=== PATIENT | female | born 1935 | race Hispanic/Latino ===

== ENCOUNTER 2017-09-01 12:42 | Outpatient (CLI) | payer MEDICARE, OTHER | END 2017-09-01 12:43 | disposition home or self-care (01) | LOC: BICCT 12:42 | PROVIDERS: ATTEND Thoracic Surgery (Cardiothoracic Vascular Surgery) | DX: I70.90 Unspecified atherosclerosis; I71.2 Thoracic aortic aneurysm, without rupture | CPT/HCPCS: 71250 ==

== ENCOUNTER 2018-01-24 10:51 | Outpatient (CLI) | payer MEDICARE, OTHER | END 2018-01-24 10:52 | disposition home or self-care (01) | LOC: BICMAMMO 10:51 | PROVIDERS: ATTEND Internal Medicine | DX: Z12.31 Encounter for screening mammogram for malignant neoplasm of breast (principal) | CPT/HCPCS: 77063; 77067 ==

== ENCOUNTER 2018-03-12 16:40 | Inpatient (IN) | payer MEDICARE, OTHER ==
[~2018-03-12 16:40] MED LIST: Lidocaine 1% PF 5 ML VIAL ONE; PHENYLEPHRINE-NS 100 MCG/ML 10 ML SYRINGE ONE; PROPOFOL 200 MG/20 ML VIAL ONE; ePHEDrine/0.9% NaCl/PF SYRINGE 50 mg/10 ml ONE
[2018-03-12] MEDS ORDERED: Acetaminophen 500 MG TAB ONE (17:44)
[2018-03-12 18:14] LABS: #Lymphocytes 0.9 thou/uL (1.20-3.40); #Monocytes 1.3 thou/uL (0.11-0.59); #Neutrophils 13.1 thou/uL (1.40-6.50); %Basophils 0.1 % (0.0-1.0); %Eosinophils 0.2 % (0.0-10.0); %Lymphocytes 5.9 % (21.0-51.0); %Monocytes 8.2 % (0.0-10.0); %Neutrophils 85.6 % (42.0-75.0); Hemoglobin 15.2 g/dL (12.0-16.0); Mean Corpuscular Hemoglobin 30.6 pg (27.0-31.0); Mean Corpuscular Volume 92.6 fL (78.0-98.0); Mean Platelet Volume 8.9 fL (7.4-10.4); Platelet Count 182 thou/uL (130-400); RBC Distribution Width 12.2 % (11.5-14.5); Red Blood Cell (RBC) Count 4.97 mill/uL (4.20-5.40); White Blood Cell (WBC) Count 15.3 thou/uL (4.8-10.8)
[2018-03-12 19:16] LABS: ALT (SGPT) 9 U/L (8-55); AST (SGOT) 20 U/L (5-34); Albumin 3.5 g/dL (3.4-4.8); Alkaline Phosphatase 51 U/L (40-150); Anion Gap 12 mmol/L (10-20); BUN (Urea Nitrogen) 17 mg/dL (9.8-20.1); Bilirubin, Total 1.5 mg/dL (0.2-1.2); Calc. Creatinine Clearance 0 mL/min (70-130); Calcium 8.8 mg/dL (7.8-10.44); Carbon Dioxide 22 mmol/L (23-31); Chloride 107 mmol/L (98-107); Estimated GFR-MDRD 68; Globulin 3.2 g/dL (2.4-3.5); Glucose 144 mg/dL (83-110); Lipase 13 U/L (8-78); Potassium 3.4 mmol/L (3.5-5.1); Protein, Total 6.7 g/dL (6.0-8.3); Sodium 138 mmol/L (136-145)
[2018-03-12 19:31] LABS: Bilirubin Negative (Negative); Blood, Urine Moderate (Negative); Clarity TURBID (Clear); Glucose, Urine (Dipstick) Negative (Negative); Leukocyte Large (Negative); Nitrite Positive (Negative); Protein, Urine (Dipstick) 30 mg/dL (Neg-Trace); Specific Gravity, Urine 1.016 (1.002-1.036); pH, Urine 6.5 (5.0-9.0)
[2018-03-12 19:34] LABS: Bacteria/HPF 4+ HPF (None Seen); Hyaline Casts/LPF 4-6 HYALINE CAST LPF (0-3 Hyaline); RBC/HPF 21-50 HPF (0-3); Squamous Epithelial 0-3 HPF (0-3)
--- NOTE | 2018-03-12 19:44 | CT ---
CT OF ABDOMEN AND PELVIS PERFORMED WITHOUT CONTRAST ENHANCEMENT: History: Abdominal pain, fever. FINDINGS: The lung bases show some linear scar. Coronary artery calcifications are present. There is a small hi atal hernia present. The liver, spleen, and pancreas regions appear unremarkable. The gallbladder is not distended. Right and left adrenal glands are normal. There are bilateral renal cysts, large bi-lobed cyst in the right kidney measures 7.1 cm. There is some calcification associated with septations. In reviewing a previous CT angiogram, I do not see that there is any obvious interval change. There is no significa nt periaortic or mesenteric adenopathy. Atherosclerotic change of the aorta is noted. There is some m ild right sided hydronephrosis and hydroureter. This is related to a proximal ureteral calculus which measures 6-7 mm. There is perinephric fat stranding seen associated with this. The ureter distal to this level is nondilated. CT OF PELVIS PERFORMED WITHOUT CONTRAST ENHANCEMENT: There is no evidence of any adenopathy, mass, or free fluid. Arthritic changes of the spine are noted. IMPRESSION: 1. Mild right sided hydronephrosis and hydroureter related to a 6 mm proximal right ureteral calculus located at the L4 level. 2. Bilateral renal cysts which appear stable as compared to a 2017 study. 3. Coronary calcifications. 4. Small hiatal hernia. POS: BIRGIT
[2018-03-12] MEDS ORDERED: cefTRIAXone\\ROCEPHIN 1 GM VIAL ONE (19:55)
[2018-03-12] MEDS ORDERED: Iothalamate Meglumine 60% 50 ML VIAL FS ONE (20:57)
--- NOTE | 2018-03-12 22:29 | RAD ---
RETROGRADE PYELOGRAM THREE VIEWS: History: Stent placement. FINDINGS: These C-arm images show a filling defect in the midureter. The final film shows placement of a ureter al stent. IMPRESSION: Right ureteral stent placement. Small calcification is noted at approximately the L3-4 level. POS: BIRGIT
[2018-03-12] MEDS ORDERED: Sodium Chloride 0.9% 1,000 ML IV SCH (22:45)
[2018-03-12] MEDS ORDERED: Vancomycin HCl 1.5 GM in Sodium Chloride 0.9% 250 ML 300 ML IVPB SCH (23:00)
--- NOTE | 2018-03-12 23:12 | CON ---
DATE OF CONSULTATION: 03/12/2018 CONSULTING PHYSICIAN: Sandro Morales MD CONSULTED PHYSICIAN: Abdulaziz Downs MD REASON FOR CONSULTATION: Ureteral stone with fevers. HISTORY OF PRESENT ILLNESS: Ms. Velez is an 83-year-old female who presented to the emerge ncy room with a fever of 101 and right-sided flank and abdominal pain. She states that she has been constipated for several days and has not had a bowel movement. She was having worsening abdominal pa in and attributed this to the constipation. She actually decided to come into the emergency room due to the constipation and the fact that she had not had a bowel movement, but was noted to be febrile on the way in and upon arrival to the ER. She underwent a CT scan, which demonstrated an approximate ly 6 to 7 mm right proximal ureteral stone with hydronephrosis and perinephric stranding, and concern ing findings on urinalysis consistent with a urinary tract infection. Given the fever and the stone, I was consulted for further assistance. On my discussion with the patient, she states she has never had kidney stones previously. She denies any previous history of urologic surgeries. She rarely ge ts UTIs and states that she does not have any significant voiding difficulties. She denies any hemat uria. ALLERGIES: SULFA. HOME MEDICATIONS: The patient does not remember her home medications. She states that she takes cam ething for blood pressure and cholesterol, but cannot remember and does not have her list with her. PAST MEDICAL HISTORY: 1. Aortic dissection. 2. Hypertension. 3. Hyperlipidemia. 4. Vaginal prolapse. PAST SURGICAL HISTORY: Hysterectomy and anterior repair. FAMILY HISTORY: Noncontributory. SOCIAL HISTORY: The patient denies alcohol abuse, illicit drug use, and denies smoking. REVIEW OF SYSTEMS: A 12-point review of systems is unremarkable other than what was commented on the HPI. Specifically, she denies vomiting, but has had some nausea. Reports fevers, back pain, and fl ank pain. 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 She denies any chest pain or shortness of breath. Remainder of 12-point review of systems was reviewed and oth erwise negative. PHYSICAL EXAMINATION: VITAL SIGNS: Temperature 101.3, pulse 87, respirations 20, blood pressure 126/76, saturations 97% on room air. GENERAL: No apparent distress, communicative, and alert. Appears younger than stated age, well nour ished, well developed. HEENT: Normocephalic, atraumatic. Sclerae are nonicteric. Pupils are symmetric and round. Trachea midline. Moist mucous membranes. Adequate dentition. CARDIOVASCULAR: Regular rate and rhythm. Normal S1 and S2. Symmetric pulses. CHEST: No increased work of breathing. Clear anteriorly. Nonlabored breathing. ABDOMEN: Soft, nondistended. Mild tenderness to palpation diffusely, but primarily in the hypogastr ic and right-sided abdomen. There is mild right CVA tenderness. GENITOURINARY: Deferred at this time. EXTREMITIES: No clubbing or cyanosis. 2+ lower extremity edema. SKIN: Warm, dry, poor turgor. No rashes or lesions. MUSCULOSKELETAL: No joint deformities or joint erythema noted. Adequate range of motion. NEUROLOGIC: Cranial nerves II-XII appear grossly intact. No obvious focal or sensory motor deficits identified. PSYCHIATRIC: Alert and oriented x3. Appropriate mood and affect. LABORATORY AND X-RAY FINDINGS: On laboratory evaluation, full set of labs is in the [employer] system, which I have reviewed. Of note, the patient's white count is currently 15.3 with 85.6% neutrophils. Creatinine is 0.81. Lactic acid is 2. Urinalysis demonstrates nitrite positive, large leukocyte e sterase, 21-50 red cells, too numerous to count white cells, 4+ bacteria with 0-[address] stone protocol from the ER today demonstrates hydronephrosis and perinephric stranding on the right kidney with an approximately 6 to 7 mm spherical proximal ureteral stone. No other additional stones were noted. ASSESSMENT AND PLAN: An 83-year-old female with likely pyelonephritis and fever with impact ed ureteral stone. Given the fevers and the ureteral stone, I would not recommend conservative manag ement. I have stressed to the patient that the best course of action would be cystoscopy with ureter al stenting. We discussed the procedure as well as the risks, which include but are not limited to b leeding, worsening infection, inability to pass a stent, damage to the ureter, ureteral perforation, damage to the kidney or bladder, need for further procedure such as a nephrostomy tube. She understa nds these risks and wishes to proceed forward. I would recommend that she be admitted to the [facility] for medical management of possible urosepsis. Blood cultures have already been taken as well as urine culture, which we will await to speciate and once we have finalization of the cultures and she is stable, she can probably be discharged on oral antibiotic therapy. I will continue to fo love and make recommendations.
[2018-03-12] MEDS ORDERED: Ondansetron HCl/PF 4 MG/2 ML Vial IVP PRN (23:22)
[2018-03-12] MEDS ORDERED: Acetaminophen 325 MG TAB PO PRN (23:22)
--- NOTE | 2018-03-13 00:59 | OP ---
DATE OF PROCEDURE: 03/12/2018 SERVICE: Urology. SURGEON: Abdulaziz Downs M.D. PREOPERATIVE DIAGNOSES: Right ureteral stone with pyelonephritis. POSTOPERATIVE DIAGNOSES: Right ureteral stone, pyelonephritis. PROCEDURE PERFORMED: Cystoscopy with right retrograde pyelogram, right ureteral stent placement. INDICATIONS FOR PROCEDURE: Ms. Velez is an 83-year-old female who presented with a fever o f 101.3 and a right ureteral stone with UA findings consistent with a urinary tract infection due to the fever and UTI, we elected to go for urgent ureteral stent placement. Risks and benefits have bee n discussed and she has agreed to proceed forward. DESCRIPTION OF PROCEDURE: After identification of verification of consent, patient was brought back to the operating room where she underwent general anesthesia with endotracheal intubation. She was t hen placed in dorsal lithotomy position and prepped and draped in usual sterile fashion. After appro priate timeout, a lubricated 22 Cypriot rigid cystoscope was introduced per urethra into the bladder. A limited cystoscopy did not demonstrate any significant findings other than very foul-smelling urin e and some hyperemic findings within the bladder. Attention was turned to the right ureteral orifice after the bladder was flushed out adequately and this was cannulated with a 5 Cypriot Pollack cathete r. A gentle retrograde pyelogram was performed, which demonstrated a filling defect at the location of the previously noted radiopaque stone. The Pollack catheter was then removed and a 0.035-sensor w armando was brought in through the ureteral orifice up to the level of the renal pelvis. A 6 x 26 double -J stent was advanced over the sensor wire up to the level of the renal pelvis. The wire removed in a good curl in the renal pelvis and good curl in the bladder. The bladder was then emptied, the cyst oscope removed. The patient was then awakened and taken to PACU for recovery in stable condition. COMPLICATIONS: None. ESTIMATED BLOOD LOSS: Minimal. RETAINED TUBES AND DRAINS: A 6 x 26 double-J stent on the right. SPECIMENS: None. DISPOSITION: Patient will be admitted to the medicine service for antibiotics. I will continue to gilda stein and make recommendations and her definitive stone management will be addressed after she has completed all of her antibiotic therapy.
[2018-03-13 05:56] LABS: #Monocytes 1.1 thou/uL (0.11-0.59); #Neutrophils 12.1 thou/uL (1.40-6.50); %Basophils 0.1 % (0.0-1.0); %Eosinophils 0.1 % (0.0-10.0); %Lymphocytes 6.8 % (21.0-51.0); %Monocytes 7.6 % (0.0-10.0); %Neutrophils 85.4 % (42.0-75.0); Hemoglobin 13.2 g/dL (12.0-16.0); Mean Corpuscular HGB CONC 32.4 g/dL (32.0-36.0); Mean Corpuscular Hemoglobin 30.5 pg (27.0-31.0); Mean Corpuscular Volume 94.1 fL (78.0-98.0); Mean Platelet Volume 7.4 fL (7.4-10.4); Platelet Count 159 thou/uL (130-400); RBC Distribution Width 11.9 % (11.5-14.5); Red Blood Cell (RBC) Count 4.35 mill/uL (4.20-5.40); White Blood Cell (WBC) Count 14.2 thou/uL (4.8-10.8)
[2018-03-13 06:14] LABS: Anion Gap 10 mmol/L (10-20); BUN (Urea Nitrogen) 14 mg/dL (9.8-20.1); Calc. Creatinine Clearance 57 mL/min (70-130); Calcium 8.8 mg/dL (7.8-10.44); Carbon Dioxide 24 mmol/L (23-31); Chloride 109 mmol/L (98-107); Estimated GFR-MDRD 69; Glucose 169 mg/dL (83-110); Sodium 140 mmol/L (136-145)
[2018-03-13] MEDS ORDERED: Mag-Al 1200 mg/1200 mg/30 ML UDCUP PO PRN (08:41)
[2018-03-13] MEDS ORDERED: Sodium Chloride 0.65% Nasal 44 ML BOT EA NARE PRN (08:41)
[2018-03-13] MEDS ORDERED: Eucerin (Mineral Oil/Petrolatum,White) 30 gm Jar TOP PRN (08:41)
[2018-03-13] MEDS ORDERED: Ondansetron ODT 4 MG TAB PO PRN (08:41)
[2018-03-13] MEDS ORDERED: Famotidine 20 MG TAB PO PRN (08:41)
[2018-03-13] MEDS ORDERED: Temazepam 15 MG CAP PO PRN (08:41)
[2018-03-13] MEDS ORDERED: Loratadine 10 MG TAB PO PRN (08:41)
[2018-03-13] MEDS ORDERED: Chloraseptic Spray 180 ml Bottle PO PRN (08:41)
[2018-03-13] MEDS ORDERED: Diabetic Tussin 200 MG/10 ML UDCUP PO PRN (08:41)
[2018-03-13] MEDS ORDERED: Senokot 8.6 MG TAB PO PRN (08:41)
[2018-03-13] MEDS ORDERED: Loperamide HCl 2 MG CAP PO PRN (08:41)
[2018-03-13] MEDS ORDERED: hydrALAZINE 20 MG/ML VIAL SLOW IVP PRN (08:41)
[2018-03-13] MEDS ORDERED: Milk Of Magnesia 30 ML UDCUP PO PRN (08:41)
[2018-03-13] MEDS ORDERED: HYDROcodone/Acetaminophen 5/325 mg Tablet PO PRN (08:41)
[2018-03-13] MEDS ORDERED: Artificial Tears 18 DROP/0.9 ML EA EYE PRN (08:41)
[2018-03-13] MEDS ORDERED: Oxybutynin 5 MG TAB PO PRN (08:58)
[2018-03-13] MEDS: Enoxaparin Sodium 40 MG/0.4 ML SYRINGE SC SCH (09:06)
--- NOTE | 2018-03-13 10:35 | PRG ---
DATE OF SERVICE: 03/13/2018 SUBJECTIVE: The patient states she is feeling fine. She has no pain today. She has had some urgenc y and frequency symptoms. She denies any fevers. OBJECTIVE: VITAL SIGNS: Temperature 98.6, pulse 81, respirations 18, blood pressure 135/79, saturation 96% on r oom air. GENERAL: No apparent distress, communicative, alert. CARDIOVASCULAR: Regular rate and rhythm. CHEST: No increased work of breathing. LUNGS: Clear to auscultation. ABDOMEN: Soft, nontender, nondistended, positive bowel sounds. EXTREMITIES: No clubbing, cyanosis, continued 2+ edema. LABORATORY DATA: A full set of labs are in the [facility] system which I have reviewed. Of note, the patient's white count has decreased to 14.2, hemoglobin is 13.2, creatinine 0.8. ASSESSMENT AND PLAN: An 83-year-old female with a right ureteral stone with pyelonephritis and possible early sepsis status post right ureteral stent placement, recovering well. I will give h er some oxybutynin to help with the bladder spasms that she is having. She still has not had a bowel movement, is complaining about her constipation, so I will start lactulose for 2 doses in addition t o the Milk of Magnesia which she already has to help facilitate emptying of her bowels. I would cont inue the IV antibiotics until she has cultures finalized at which point she can be transitioned to p. o. antibiotics and discharged on oral antibiotics for probably about 2 weeks before we would plan for any definitive intervention for removal of the stone. I will continue to follow along and make sara mmendations.
[2018-03-13] MEDS ORDERED: Acetaminophen 500 MG TAB PO PRN (13:51)
[2018-03-13] MEDS ORDERED: Bisacodyl 5 MG TAB PO PRN (13:51)
[2018-03-13] MEDS ORDERED: Bisacodyl 10 MG SUPP PR PRN (13:51)
--- NOTE | 2018-03-13 13:52 | PDOC.PN ---
- Subjective Encounter Start Date: 03/13/18 Encounter Start Time: 09:00 -: old records requested/rev Patient seen and examined. No overnight events pt feels better, she has constipation - Objective Resuscitation Status: Resuscitation Status FULL:Full Resuscitation MAR Reviewed: Yes Vital Signs & Weight: Vital Signs (12 hours) Temp Pulse Resp BP Pulse Ox 03/13/18 10:49 98.4 F 76 16 143/87 H 95 03/13/18 08:00 96 03/13/18 07:13 98.6 F 81 18 135/79 96 03/13/18 03:50 98.0 F 83 20 138/77 99 Weight Weight 148 lb 1 oz I&O: 03/12/18 03/13/18 03/14/18 06:59 06:59 06:59 Intake Total 1200 Output Total 600 Balance 600 Result Diagrams: 03/13/18 05:23 03/13/18 05:23 Phys Exam - Physical Examination Constitutional: NAD HEENT: PERRLA, moist MMs, sclera anicteric Neck: no JVD, supple Respiratory: no wheezing, no rales, no rhonchi Cardiovascular: RRR, no significant murmur, no rub Gastrointestinal: soft, non-tender, no distention, positive bowel sounds Musculoskeletal: no edema, pulses present Neurological: non-focal, normal sensation, moves all 4 limbs Psychiatric: normal affect, A&O x 3 Skin: no rash, normal turgor Dx/Plan (1) Acute pyelonephritis Code(s): N10 - ACUTE PYELONEPHRITIS Status: Acute (2) Hydronephrosis, right Code(s): N13.30 - UNSPECIFIED HYDRONEPHROSIS Status: Acute (3) Hypokalemia Code(s): E87.6 - HYPOKALEMIA Status: Acute (4) Right ureteral calculus Code(s): N20.1 - CALCULUS OF URETER Status: Acute (5) Sepsis Code(s): A41.9 - SEPSIS, UNSPECIFIED ORGANISM Status: Acute (6) UTI (urinary tract infection) Status: Acute - Plan cont current plan of care, plan discussed w/ family, continue antibiotics * continue rocephin * treat constipation with lactulose and other stool softener * medication reviewed as below * symptomatic treatment * follow culture * discussed with family. Review of Systems - Review of Systems ENT: negative: Ear Pain, Ear Discharge, Nose Pain, Nose Discharge, Nose Congestion, Mouth Pain, Mouth Swelling, Throat Pain, Throat Swelling, Other Respiratory: negative: Cough, Dry, Shortness of Breath, Hemoptysis, SOB with Excertion, Pleuritic Pain, Sputum, Wheezing Cardiovascular: negative: chest pain, palpitations, orthopnea, paroxysmal nocturnal dyspnea, edema, light headedness, other Gastrointestinal: negative: Nausea, Vomiting, Abdominal Pain, Diarrhea, Constipation, Melena, Hematochezia, Other Genitourinary: negative: Dysuria, Frequency, Incontinence, Hematuria, Retention , Other Musculoskeletal: negative: Neck Pain, Shoulder Pain, Arm Pain, Back Pain, Hand Pain, Leg Pain, Foot Pain, Other Skin: negative: Rash, Lesions, Vikash, Bruising, Other - Medications/Allergies Allergies/Adverse Reactions: Allergies Allergy/AdvReac Type Severity Reaction Status Date / Time sulfamethoxazole Allergy Unverified 03/12/18 22:32 [From Bactrim] trimethoprim [From Bactrim] Allergy Unverified 03/12/18 22:32 Medications: Current Medications Acetaminophen (Tylenol) 650 mg PO Q4H PRN PRN Reason: Headache/Fever/Mild Pain (1-3) Hydrocodone Bitart/Acetaminophen ([place] 5/325) 1 tab PO Q4H PRN PRN Reason: Moderate Pain (4-6) Al Hydroxide/Mg Hydroxide (Maalox) 15 ml PO Q4H PRN PRN Reason: Heartburn or Indigestion Artificial Tears (Tears Naturale) 0 drop EA EYE PRN PRN PRN Reason: Dry Eyes Enoxaparin Sodium (Lovenox) 40 mg SC 0900 [facility] Last Admin: 03/13/18 09:06 Dose: 40 mg Famotidine (Pepcid) 20 mg PO BIDPRN PRN PRN Reason: Heartburn or Indigestion Guaifenesin (Robitussin Sf) 200 mg PO Q4H PRN PRN Reason: Cough Hydralazine HCl (Apresoline) 10 mg SLOW IVP Q4H PRN PRN Reason: Systolic BP > 180 Ceftriaxone Sodium 1 gm/ (Sodium Chloride) 100 mls @ 200 mls/hr IVPB Q24HR [facility] Lactulose (Lactulose) 30 gm PO BID [facility] Stop: 03/13/18 21:01 Last Admin: 03/13/18 09:07 Dose: 30 gm Loperamide HCl (Imodium) 2 mg PO PRN PRN PRN Reason: Diarrhea/Loose Stools Loratadine (Claritin) 10 mg PO DAILYPRN PRN PRN Reason: Sinus Symptoms Magnesium Hydroxide (Milk Of Magnesium) 30 ml PO DAILYPRN PRN PRN Reason: Constipation Mineral Oil/White Petrolatum (Eucerin Cream) 0 gm TOP BIDPRN PRN PRN Reason: Dry Skin Ondansetron HCl (Zofran) 4 mg IVP Q6H PRN PRN Reason: Nausea/Vomiting Ondansetron HCl (Zofran Odt) 4 mg PO Q6H PRN PRN Reason: Nausea/Vomiting Oxybutynin Chloride (Ditropan) 5 mg PO Q8H PRN PRN Reason: bladder spasms/urgency/freq Phenol (Chloraseptic [place] 180 Ml Bot) 0 ml PO PRN PRN PRN Reason: Sore Throat Senna (Senokot) 2 tab PO HSPRN PRN PRN Reason: Constipation Sodium Chloride ([place] Nasal [place] 0.65%) 0 ml EA NARE QIDPRN PRN PRN Reason: Nasal Congestion Temazepam (Restoril) 15 mg PO HSPRN PRN PRN Reason: Insomnia
--- NOTE | 2018-03-13 14:28 | HP ---
DATE OF ADMISSION: 03/12/2018 PRIMARY CARE PHYSICIAN: Dr. Александр Pang. CODE STATUS: Patient is a FULL CODE. TIME OF EVALUATION: 9:00 p.m. CHIEF COMPLAINT: Abdominal pain, right flank. HISTORY OF PRESENT ILLNESS: An 83-year-old female patient with past medical history of hyperlipidemi a, hypertension, hysterectomy, came to the hospital after having abdominal pain that was in the right flank for the past 3 days, with no clear triggers, no alleviating factors. Patient was suspecting t hat this was due to constipation. Since it has been a few days that she did not have a bowel movemen t, patient also has associated fever of 101.9 and nausea. Symptoms were reported as [id number]. REVIEW OF SYSTEMS: Constitutional: Patient has fever, chills, generalized weakness. Respiratory: No cough, sputum production, or shortness of breath. Gastrointestinal: Patient has nausea, vomiting . No diarrhea. Patient has right flank pain. ZANJERO: No dizziness, headache, or feeling lightheaded. Genitourinary: The patient has right flank pain. Extremities: No leg swelling. All other system s were reviewed and are negative except for the findings mentioned above. PAST MEDICAL HISTORY: Positive for aortic dissection treated medically, hyperlipidemia, hypertension . PAST SURGICAL HISTORY: Vaginal prolapse, hysterectomy. PSYCHIATRIC HISTORY: No previous psychiatric history. SOCIAL HISTORY: No alcohol, no drugs. No smoking history. DRUG ALLERGIES: BACTRIM. REPORTED MEDICATIONS: Pravastatin, amlodipine, metoprolol, furosemide, levothyroxine, aspirin, Flexe ril, [place], Cipro. PHYSICAL EXAMINATION: VITAL SIGNS: On presentation, blood pressure 126/76 with heart rate 87, respiratory rate was 20, tem perature of 101.3. Pain was 0/10, oxygen saturation 93 on room air. GENERAL APPEARANCE: The patient is alert, oriented, in mild distress due to right flank pain. HEENT: Normal conjunctivae, moist oral mucosa. Anicteric. NECK: No JVD. RESPIRATORY: Bilateral air entry. No rales, no wheezing. Symmetric expansion. CARDIOVASCULAR: Normal rate, regular rhythm. No murmurs, no gallop, no edema. ABDOMEN: Soft. Normal bowel sounds. MUSCULOSKELETAL: Baseline range of motion and strength. No tenderness. SKIN: Warm and intact. No pallor or rash noted. Peripheral pulses are present. Capillary refill s eems to be intact. NEUROLOGIC: No evidence of any new focal weakness. Baseline speech. Cranial nerves seem to be inta ct. PSYCHIATRIC: Patient is in good mood. No anxiety, oriented, optimal judgment. GENITOURINARY: The patient has right flank pain on palpation. IMAGING: CAT scan was reviewed. The patient has mild right-sided hydronephrosiswith hydroureter rel ated to a 6 mm proximal right ureteral calculus located at L4 level and bilateral renal cysts, which appeared stable as compared to 2017 study, coronary calcifications, and small hiatal hernia. LABORATORY DATA: Reviewed. White count 15.3, hemoglobin 15.2, MCV 92, platelet count 182. Chemistr y: Sodium 138, potassium 3.4, chloride 107, carbon dioxide 22, anion gap 12, BUN 17, creatinine 0.8, GFR of 68, glucose 244. Lactic acid 2.0, calcium 9.8. Total bilirubin 1.5, AST 20, ALT 9, alkaline phosphatase 51, serum total protein 6.7, albumin 3.5, globulin 3.2, albumin globulin ratio is 1.1 an d lipase 13. Urine was done. The patient has a white count greater than 50 too numerous to count wi th rbc 21 to 50, large leukocyte esterase. ASSESSMENT AND PLAN: The patient will be placed in the hospital with following medical problem: 1. Right urinary obstruction with mild hydronephrosis due to kidney stone of 6-7 mm, patient has raheem e through procedure and the stent has been placed. Urology is following this part, we will follow re commendations. 2. Urinary tract infection. Patient has positive UA. Patient has fever, elevated white count. We will place the patient on antibiotics. We will follow cultures, adjust treatment as needed. 3. Sepsis. Patient has leukocytosis with fever, source of urinary tract infection due to obstructio n from kidney stone, we will continue with reconciling medication and antibiotics as per culture and sensitivity, hydration. 4. Hypokalemia with a potassium of 3.4, this is mild, we will replace electrolytes as needed. 5. Hyperlipidemia, reconcile home medications. Low cholesterol diet is advised. 6. Uncontrolled hypertension. Patient has a blood pressure 152 on presentation, we will reconcile h ome medications, we will not treat aggressively since patient has sepsis and risk for septic shock. 7. Deep venous thrombosis prophylaxis.
[2018-03-13] MEDS ORDERED: cefTRIAXone\\ROCEPHIN 1 GM in Sodium Chloride 0.9% 100 ML IVPB SCH (20:00)
[2018-03-14 06:24] LABS: #Lymphocytes 0.9 thou/uL (1.20-3.40); #Monocytes 0.9 thou/uL (0.11-0.59); #Neutrophils 5.8 thou/uL (1.40-6.50); %Basophils 0.2 % (0.0-1.0); %Eosinophils 0.2 % (0.0-10.0); %Lymphocytes 12.1 % (21.0-51.0); %Monocytes 11.2 % (0.0-10.0); %Neutrophils 76.2 % (42.0-75.0); Mean Corpuscular HGB CONC 32.4 g/dL (32.0-36.0); Mean Corpuscular Hemoglobin 30.6 pg (27.0-31.0); Mean Corpuscular Volume 94.3 fL (78.0-98.0); Mean Platelet Volume 8.2 fL (7.4-10.4); Platelet Count 145 thou/uL (130-400); RBC Distribution Width 11.9 % (11.5-14.5); Red Blood Cell (RBC) Count 4.25 mill/uL (4.20-5.40); White Blood Cell (WBC) Count 7.6 thou/uL (4.8-10.8)
[2018-03-14 06:41] LABS: Anion Gap 11 mmol/L (10-20); BUN (Urea Nitrogen) 12 mg/dL (9.8-20.1); Calc. Creatinine Clearance 56 mL/min (70-130); Calcium 8.7 mg/dL (7.8-10.44); Carbon Dioxide 24 mmol/L (23-31); Chloride 107 mmol/L (98-107); Estimated GFR-MDRD 67; Glucose 143 mg/dL (83-110); Sodium 139 mmol/L (136-145)
[2018-03-14] MEDS ORDERED: Potassium Chloride 20 MEQ TAB PO SCH (07:30)
[2018-03-14] MEDS: Enoxaparin Sodium 40 MG/0.4 ML SYRINGE SC SCH (08:59)
--- NOTE | 2018-03-14 10:42 | DIS ---
DATE OF ADMISSION: 03/12/2018 DATE OF DISCHARGE: 03/14/2018 PRIMARY CARE PHYSICIAN: Luna Llanos M.D. DISCHARGE DISPOSITION: Home. PRIMARY DISCHARGE DIAGNOSES: 1. Right hydronephrosis due to right ureteral calculus. 2. Acute pyelonephritis. 3. Hypokalemia. 4. Status post cystoscopy and stent placement. 5. Sepsis due to urinary tract infection. SECONDARY DISCHARGE DIAGNOSES: Hypothyroidism, dyslipidemia, hypertension, unspecified arrhythmia. PRIMARY PROCEDURE/OPERATION: Cystoscopy with stent placement by Dr. Downs. RADIOLOGICAL INVESTIGATION: Abdomen and pelvis CT scan showed mild right-sided hydronephrosis, hydroureter 6 mm, proximal right ureteral calculus, coronary calcification, hiatal hernia. SIGNIFICANT LABORATORY DATA: WBC 7.6, hemoglobin 13.0, platelet 145. Sodium 139, potassium 3.0, BUN 12, creatinine 0.82, calcium 8.7. Liver enzymes normal. Lipase 13. Urinalysis suggestive of UTI. Urine culture grew E. coli. DISCHARGE MEDICATIONS: New medications: Cipro 500 mg p.o. b.i.d. for 15 days. Continue home medications; amlodipine 5 mg p.o. daily, aspirin 81 mg p.o. at bedtime, Lasix 20 mg p.o. daily, Synthroid 50 mcg p.o. daily, pravastatin 40 mg p.o. at bedtime, sotalol 80 mg p.o. b.i.d. CONTRAINDICATIONS: None. CODE STATUS: FULL CODE. INPATIENT CAN WORKER: Dr. Yareli Cintron was consulted while in hospital. TEST RESULTS PENDING ON DISCHARGE: None. ALLERGIES: SULFA DRUGS. DISCHARGE PLAN: Post hospital, patient will follow up with Dr. Viet Carrasco in 1 week. The patient will follow up with Dr. Downs who has been as instructed. HOSPITAL COURSE: An 83-year-old female with above-mentioned medical problem who was admitted by Dr. Lockett. Please see his H&P for further details. The patient was having urinary tract infection symptoms with right flank pain. She was diagnosed with right hydronephrosis, hydroureter and right ureteral calculi. The patient was admitted to surgical floor. Urology was consulted. They did cystoscopy and stent placement. The patient was given broad spectrum antibiotic therapy with Rocephin and Levaquin. Upon discharge, we changed to p.o. Cipro based on culture and sensitivity result. The patient's leukocytosis improved. Her pain was resolved. The patient was clinically doing very well. She was ambulatory, tolerating p.o. well. The patient is already evaluated by Urology and they cleared her for discharge on outpatient further treatment. The patient had cystoscopy and stent placement during this hospital course. Patient is seen and examined at bedside today. PHYSICAL EXAMINATION: VITAL SIGNS: Currently, temperature 98.1, pulse 80, respiratory rate 16, saturation 97% on room air, blood pressure 136/80, weight 148 pounds. GENERAL: The patient is currently alert, awake, no obvious acute distress. HEAD: Normocephalic, atraumatic. EYES: Pupils round and reactive to light. Extraocular muscle intact. ENT: Oropharynx within normal limits. Moist mucous membranes. No oral lesion , no pharyngeal erythema, no exudate. NECK: Supple, no JVD, no thyromegaly, no carotid bruit. No jugular venous distention. LUNGS: Clear to auscultation without any rhonchi or rales. CARDIAC: S1 and S2 regular without any murmur. ABDOMEN: Soft and benign without any tenderness. EXTREMITIES: No edema. NEUROLOGIC: Nonfocal examination. Overall, the patient is medically stable for discharge today. Total time spent on discharge day 31 minutes MTDD
[2018-03-14 12:00] VITALS: BP 145/83; TEMP 98.2
--- NOTE | 2018-03-14 13:28 | PRG ---
DATE OF SERVICE: 03/14/2018 SUBJECTIVE: The patient states she is feeling fine. She has had a few bladder spasms. No significa nt pain. OBJECTIVE: VITAL SIGNS: Temperature 98.2, pulse 74, respirations 18, blood pressure 145/83, saturations 95% on room air. GENERAL: In no apparent distress. Communicative and alert. CARDIOVASCULAR: Regular rate and rhythm. ABDOMEN: Soft, nontender, nondistended, positive bowel sounds. CHEST: No increased work of breathing. EXTREMITIES: No clubbing or cyanosis. A 2+ edema. LABORATORY EVALUATION: The full set of labs are in the [facility], which I have reviewed. Of n ote, patient's white count is 7.6 with a creatinine of 0.82. ASSESSMENT AND PLAN: An 83-year-old female with a right proximal ureteral stone, status pos t cystoscopy and stent placement. Urine culture grew back Escherichia coli, which appears to be pans ensitive. She was taken off her IV antibiotics and switched over to Cipro, which she will take for a pproximately 10 days. I will plan to see her back for surgery, for ureteroscopy once she has complet ed antibiotic course with a preop urine culture done ahead of time. So long as everything is clear, we will plan ureteroscopy and removal of the stone and subsequently her followup care can be handled on an outpatient basis afterwards.
== END 2018-03-14 11:30 | disposition home or self-care (01) | DRG 854 ==
LOC: ERS 16:40 → SURG B 19:50 → ERS 21:18
PROVIDERS: ADMIT Hospitalist; ATTEND Hospitalist
PROC: 0T768DZ Dilation of Right Ureter with Intraluminal Device, Via Natural or Artificial Opening Endoscopic (ICD-10-PCS; principal; 2018-03-12)
DX: A41.9 Sepsis, unspecified organism (principal); N13.6 Pyonephrosis; E78.5 Hyperlipidemia, unspecified; I10 Essential (primary) hypertension; Z79.82 Long term (current) use of aspirin; E87.6 Hypokalemia; B96.20 Unspecified Escherichia coli [E. coli] as the cause of diseases classified elsewhere; E03.9 Hypothyroidism, unspecified; Z88.2 Allergy status to sulfonamides
CPT/HCPCS: 36415; 74176; 74420; 80048; 80053; 81003; 81015; 83605; 83690; 85025; 87077; 87086; 87186; 96361; 96365; C1758; C1769; J0696; J1650; J2001; J2704; J3370; J7050; Q9961

== ENCOUNTER 2018-03-24 11:19 | Outpatient (CLI) | payer MEDICARE, OTHER ==
[2018-03-24 13:06] LABS: Bilirubin Negative (Negative); Blood, Urine Large (Negative); Clarity CLOUDY (Clear); Glucose, Urine (Dipstick) Negative (Negative); Leukocyte Moderate (Negative); Nitrite Negative (Negative); Protein, Urine (Dipstick) 100 mg/dL (Neg-Trace); Specific Gravity, Urine 1.015 (1.002-1.036); Urobilinogen 0.2 mg/dL (0.2-1.0)
[2018-03-24 13:08] LABS: Hemoglobin 13.8 g/dL (12.0-16.0); Mean Corpuscular HGB CONC 32.1 g/dL (32.0-36.0); Mean Corpuscular Hemoglobin 30.3 pg (27.0-31.0); Mean Corpuscular Volume 94.4 fL (78.0-98.0); Mean Platelet Volume 6.9 fL (7.4-10.4); Platelet Count 329 thou/uL (130-400); Red Blood Cell (RBC) Count 4.56 mill/uL (4.20-5.40); White Blood Cell (WBC) Count 7.2 thou/uL (4.8-10.8)
[2018-03-24 13:11] LABS: Bacteria/HPF None Seen HPF (None Seen); Hyaline Casts/LPF 0-3 HYALINE CAST LPF (0-3 Hyaline); Pathc Cast-AUWi Flag 1.01 (0-2.49); RBC/HPF GREATER THAN 50-TNTC HPF (0-3); Squamous Epithelial 0-3 HPF (0-3); WBC/HPF 21-50 HPF (0-3)
[2018-03-24 13:13] LABS: INR-International Normal Ratio 1.1; PTT 28.3 SEC (22.9-36.1)
[2018-03-24 13:21] LABS: Anion Gap 12 mmol/L (10-20); BUN (Urea Nitrogen) 18 mg/dL (9.8-20.1); Calc. Creatinine Clearance 0 mL/min (70-130); Calcium 9.4 mg/dL (7.8-10.44); Carbon Dioxide 24 mmol/L (23-31); Chloride 107 mmol/L (98-107); Estimated GFR-MDRD 67; Glucose 112 mg/dL (83-110); Potassium 4.1 mmol/L (3.5-5.1); Sodium 139 mmol/L (136-145)
== END 2018-03-24 11:20 | disposition home or self-care (01) ==
LOC: LABBT 11:19
PROVIDERS: ATTEND Urology
DX: Z01.818 Encounter for other preprocedural examination (principal); N20.1 Calculus of ureter
CPT/HCPCS: 80048; 81003; 81015; 85027; 85610; 85730; 87077; 87086; 87186; 93005; 93010

== ENCOUNTER → 2018-03-30 | Day surgery (SDC) | payer MEDICARE, OTHER ==
[2018-03-24 11:58] VITALS: BMI 26.6
[~2018-03-30] MED LIST changes: +B & O 30 MG SUPP ONE; +Fentanyl 100 MCG/2 ML VIAL ONE; +Glycopyrrolate 0.2 MG/ML 5 ML SYRINGE ONE; +Levofloxacin 500 mg/D5W 100 ml Premix Bag ONE; +MEROPENEM 1 GM/50 ML 1 GM in Premix Bag 1 BAG IVPB SCH; +Ondansetron PF 4 MG/2 ML Vial ONE; -PHENYLEPHRINE-NS 100 MCG/ML 10 ML SYRINGE ONE; +SUGAMMADEX SODIUM 200 MG/2 ML VIAL ONE; -ePHEDrine/0.9% NaCl/PF SYRINGE 50 mg/10 ml ONE
--- NOTE | 2018-03-30 07:38 | RAD ---
KUB: Date: 03/30/18 INDICATION: Preop evaluation. COMPARISON: IVP evaluation dated 03/12/[address] of the abdomen and pelvis without contrast dated 03/12/18. FINDINGS/IMPRESSION: The 5-6 mm calculus within the proximal right ureter, adjacent to the right ureteral stent. The ston e is not appreciably changed in position to the comparison IVP retrograde evaluation dated 03/12/18. Right Double-J ureteral stent projects in the expected position. Small phleboliths are present within the lower pelvis. Bowel gas pattern is unobstructed. No acute osseous abnormality is evident. POS: [facility]
--- NOTE | 2018-03-30 10:05 | OP ---
DATE OF PROCEDURE: 03/30/2018 SURGEON: Abdulaziz Downs M.D. PREOPERATIVE DIAGNOSIS: Right ureteral stone. POSTOPERATIVE DIAGNOSIS: Right ureteral stone. PROCEDURE PERFORMED: Right ureteroscopy, laser lithotripsy, basket extraction of stones and placemen t of 6 x 24 double-J stent. INDICATIONS FOR PROCEDURE: Ms. Velez is an 83-year-old female who initially presented to [facility] with fevers and right-sided ureteral stone with hydronephrosis. She underwent emergent ureteral st enting. She was placed on 2 weeks of antibiotics and is now presenting for definitive management. O f note, she had low colony counts of multidrug resistant E. coli which was sensitive only to Macrobid and Bactrim. Since she had a Bactrim allergy we had placed her on Macrobid preoperatively which she is taking now. Risks and benefits of surgery have been discussed and she has agreed to proceed forw marcia. DESCRIPTION OF PROCEDURE: After identification of armband and verification of consent, the patient w as brought back to the operating room, given general anesthesia with an LMA. She was placed in dorsa l lithotomy position and prepped and draped in usual sterile fashion. After appropriate timeout, a l ubricated 22 Hebrew rigid cystoscope was introduced per urethra into the bladder and attention turned to the right ureteral orifice from which there was a stent emanating. Flexible graspers were used t o grasp the stent remove it out to the level of the urethral meatus. A 0.035 sensor wire was advance d through the stent up to the level of the renal pelvis and the stent removed and discarded. A dual lumen catheter was advanced over the sensor wire up to the level of the mid ureter and an Amplatz Sup er Stiff wire was then advanced through the second lumen up to the level of the renal pelvis. The du al lumen was then removed and sensor wire affixed to the drape as a safety wire. A 13 x 15 x 28 cm u reteral access sheath was then advanced over the Super Stiff wire to the level of the mid ureter near the stone which was radiopaque on fluoroscopy. The inner cannula and the Super Stiff wire were then removed leaving the outer sheath in place and the sensor wire in place as a safety wire. A flexible digital ureteroscope was then passed through the ureteral access sheath up to the level of the stone . A 200 micron laser fiber was then used to fragment the stone into small pieces and the pieces gras ped with a 1.9 Hebrew 0 tip nitinol basket. Upon completion, all fragments were removed and there we re 0 fragments remaining. A pyeloscopy was performed and no additional stones were noted within the kidney. Pull back ureteroscopy was employed and no additional stones were found in the ureter. The digital ureteroscope was then removed with the sheath and the rigid cystoscope was brought back over the sensor wire back into the bladder. A 6 x 24 double-J stent with no string attached was advanced over the sensor wire up to the level of the renal pelvis and the wire removed leaving a good curl in renal pelvis and good curl in the bladder. The bladder was then emptied, the cystoscope removed. Th e patient then awakened and taken to PACU for recovery in stable condition. COMPLICATIONS: None. ESTIMATED BLOOD LOSS: Minimal. RETAINED TUBES AND DRAINS: A 6 x 24 double-J stent on the right. SPECIMENS: Stone for stone analysis. DISPOSITION: The patient will be discharged home and follow up with me in approximately 1 week for c ystoscopy and stent removal.
[2018-04-04 18:11] LABS: CA Oxalate Monohydrate 65 % (.); CA Phosphate 30 % (.); Color Brown (.); Stone Weight 28.9 mg (.)
== END ==
LOC: SDC 06:04
PROVIDERS: ATTEND Urology
PROC: 0TF68ZZ Fragmentation in Right Ureter, Via Natural or Artificial Opening Endoscopic (ICD-10-PCS; principal; 2018-03-30)
PROC: 0T768DZ Dilation of Right Ureter with Intraluminal Device, Via Natural or Artificial Opening Endoscopic (ICD-10-PCS; 2018-03-30)
DX: N20.1 Calculus of ureter (principal); E78.5 Hyperlipidemia, unspecified; I10 Essential (primary) hypertension; Z88.2 Allergy status to sulfonamides
CPT/HCPCS: 52356; 74018; 76000; 82365; 88300; C1769; J1956; J2001; J2185; J2405; J2704; J3010

== ENCOUNTER 2018-05-17 12:49 | Outpatient (CLI) | payer MEDICARE, OTHER ==
--- NOTE | 2018-05-17 16:02 | ULT ---
RENAL SONOGRAM: Date: 05-17-18 History: Patient with right hydronephrosis and ureteral calculus. FINDINGS: Right kidney measures 8.7 cm x 5.1 cm with the left kidney measuring 9.3 cm x 4.7 cm. There are anechoic cystic lesions seen in each kidney which was seen on the CT examination. Two of th e anechoic structures within the superior pole midportion right kidney represent two closely adjacent cysts versus cyst with a septation. These two closely adjacent cysts versus cyst with septation holden ures approximately 6.8 cm in maximal dimension. There are anechoic cystic lesions also seen in the le ft kidney, the largest in the midportion of the left kidney measuring 4.7 cm. Anechoic cystic lesions in each kidney demonstrate sonographic characteristics most compatible with cysts, these cysts have also been present on prior studies dating back 2016. Previously seen right hydronephrosis on CT examination is not present on this study. Ureteral stent p laced within the right renal collecting system noted on retrogade urogram on 03-12-18 is not visualiz ed, but there is an echogenic focus in the decompressed urinary bladder, likely related to the ureter al stent. Again, urinary bladder is compressed. IMPRESSION: 1. No evidence of hydronephrosis bilaterally. Previously seen right sided hydronephrosis on CT examin ation has resolved. Right ureteral stent is noted in place, partially imaged within the urinary bladd er. 2. Bilateral renal cysts. POS: [facility]
== END 2018-05-17 12:50 | disposition home or self-care (01) ==
LOC: BICULT 12:49
PROVIDERS: ATTEND Urology
DX: N13.2 Hydronephrosis with renal and ureteral calculous obstruction (principal); N28.1 Cyst of kidney, acquired; Z96.0 Presence of urogenital implants
CPT/HCPCS: 76770

== ENCOUNTER 2018-10-15 14:09 | Inpatient (IN) | payer MEDICARE, OTHER ==
--- NOTE | 2018-10-15 14:55 | RAD ---
TWO VIEW CHEST: HISTORY: Cough. COMPARISON: 05/06/2007. FINDINGS: There is new infiltrate in the right middle lobe seen on both frontal and lateral projections. Lungs otherwise clear. Vascular markings normal. Heart size upper normal and stable. Osseous structures unremarkable. IMPRESSION: Right middle lobe infiltrate. Followup recommended. POS: [facility]
[2018-10-15 15:18] LABS: #Eosinphils 0.2 thou/uL (0.0-0.7); #Lymphocytes 1.6 thou/uL (1.20-3.40); #Neutrophils 5.8 thou/uL (1.40-6.50); %Basophils 0.1 % (0.0-1.0); %Eosinophils 2.7 % (0.0-10.0); %Lymphocytes 18.6 % (21.0-51.0); %Monocytes 11.7 % (0.0-10.0); %Neutrophils 66.9 % (42.0-75.0); Hemoglobin 13.3 g/dL (12.0-16.0); Mean Corpuscular HGB CONC 32.2 g/dL (32.0-36.0); Mean Corpuscular Hemoglobin 30.1 pg (27.0-31.0); Mean Corpuscular Volume 93.6 fL (78.0-98.0); Platelet Count 249 thou/uL (130-400); RBC Distribution Width 11.4 % (11.5-14.5); Red Blood Cell (RBC) Count 4.41 mill/uL (4.20-5.40); White Blood Cell (WBC) Count 8.7 thou/uL (4.8-10.8)
[2018-10-15 15:41] LABS: ALT (SGPT) 10 U/L (8-55); AST (SGOT) 15 U/L (5-34); Albumin 3.8 g/dL (3.4-4.8); Alkaline Phosphatase 65 U/L (40-150); Anion Gap 13 mmol/L (10-20); BUN (Urea Nitrogen) 16 mg/dL (9.8-20.1); Bilirubin, Total 0.9 mg/dL (0.2-1.2); Calc. Creatinine Clearance 0 mL/min (70-130); Calcium 8.9 mg/dL (7.8-10.44); Carbon Dioxide 26 mmol/L (23-31); Chloride 104 mmol/L (98-107); Estimated GFR-MDRD 62; Globulin 3.1 g/dL (2.4-3.5); Glucose 155 mg/dL (83-110); Potassium 3.8 mmol/L (3.5-5.1); Protein, Total 6.9 g/dL (6.0-8.3); Sodium 139 mmol/L (136-145)
[2018-10-15] MEDS ORDERED: cefTRIAXone\\ROCEPHIN 2 GM VIAL ONE (16:47)
[2018-10-15] MEDS ORDERED: Acetaminophen 325 MG TAB PO PRN (18:12)
--- NOTE | 2018-10-15 19:07 | HP ---
PRIMARY CARE PROVIDER: Dr. Llanos. CHIEF COMPLAINT: "sinus is acting up." HISTORY OF PRESENT ILLNESS: This is an 83-year-old female with history of aortic abnormality medically managed (possible aortic dissection), on sotalol therapy; hypertension; dyslipidemia; hypothyroidism; renal stone; and history of pyelonephritis with hospitalization in February 2018, who presents to the emergency room with the above complaint. The patient reports a productive cough over the past 3 weeks that had not improved. She complains of runny nose and postnasal drip that has not responded to taking Zyrtec once daily. She denies any fevers, chills, nausea, or vomiting, denies any shortness of breath or chest tightness. She has not tried any medications, denies any history of pneumonia, denies any precipitating or relieving factors. Because the patient's recently had surgery, she has not been evaluated for this. She has not tried any medications for the cough. In the emergency room, the patient was found to have pneumonia, given 2 g of ceftriaxone, and 1 L of normal saline, and hospitalist called for admission. ALLERGIES: SEPTRA AND BACTRIM. CURRENT MEDICATIONS: Reconciled with the list provided by the patient. 1. Pravastatin 40 mg at bedtime. 2. Amlodipine 5 mg daily. 3. Levothyroxine 50 mcg daily. 4. Aspirin 81 mg daily. 5. Sotalol 80 mg b.i.d. 6. Furosemide 20 mg daily. 7. Vitamin D3 5000 units daily. 8. Minoxidil topical daily. 9. Meloxicam 15 mg as needed. PAST MEDICAL HISTORY: 1. Aortic abnormality (possibly dissection), that was managed by Dr. Hendrix and for which the patient reports she is on sotalol. 2. Right renal calculus with stent placement and associated pyelonephritis, hospitalized in February 2018. 3. Hypertension. 4. Dyslipidemia. 5. Hypothyroidism. PAST SURGICAL HISTORY: 1. . 2. Right ureteral stent, which has since been removed. 3. Vaginal prolapse. 4. Hysterectomy. FAMILY HISTORY: The patient denies any inherited disorders. SOCIAL HISTORY: She lives with her , denies any alcohol or tobacco. REVIEW OF SYSTEMS: Positive for runny nose. Negative for all the conditions noted above to include she denies any urinary problems, back pain, ear pain, or vision changes, also denies any headaches. All remaining review of systems are reviewed and negative. PHYSICAL EXAMINATION: VITAL SIGNS: Blood pressure 140/64, pulse 78, respirations 24, temperature 99.4 with the highest temperature 100.4 at rectal and saturations 98% on room air. GENERAL: Awake, alert, responsive, in no apparent distress. Able to speak in regular sentences. HEENT: Her pupils are equal and round. Tympanic membrane on the left is translucent, on the right is occluded by cerumen. Oral mucosa is pink and moist. NECK: Supple and nontender. LYMPHATICS: No palpable cervical or supraclavicular lymphadenopathy. LUNGS: Clear to auscultation bilateral. HEART: Normal S1 and S2. Regular rate and rhythm. No audible murmurs. ABDOMEN: Soft with present bowel sounds. Nontender, nondistended. No palpable abnormalities. EXTREMITIES: No clubbing, cyanosis, or edema. SKIN: No visible rashes. NEURO: No focal deficits. Moves arms and legs equally. PSYCH: The patient is euthymic. Good eye contact. Normal speech. LABORATORY DATA: Labs reviewed. CBC: 8.7, 13.3, 41.2, 249. Chemistry: 139, 3.8, 104, 26, 16, 0.87, 155. LFTs negative. Troponin negative. DIAGNOSTIC DATA: Chest x-ray is personally reviewed. It shows a right middle lobe infiltrate. EKG, personally reviewed, sinus rhythm, left axis deviation, abnormal R-wave progression, no ST changes, and a QTc of 454. IMPRESSION: 1. Pneumonia in a patient at high risk due to age and comorbidities. 2. Remote history of aortic abnormality, managed on sotalol and asymptomatic. 3. Hypertension. 4. Hypothyroidism. 5. Dyslipidemia. PLAN: 1. Admission to the hospital. 2. Monitoring on telemetry. 3. Continuing the ceftriaxone, and we will add doxycycline for broader coverage. Avoiding any medications that can prolong the QT interval as the patient is on sotalol. (Specifically avoiding fluoroquinolones and azithromycin.) Reviewed with the pharmacist and no interactions between doxycycline and sotalol identified. 4. Oxygen supplementation if needed, Physical Therapy to work with the patient as well. 5. Continuing her usual medications with hold parameters on her amlodipine. 6. Anticipated length of stay is 2 midnights on the basis of monitoring for any change. 7. DVT prophylaxis with pneumatic compression devices. 8. GI prophylaxis not indicated. 9. Code status is full. 10. Surrogate decision maker is her , Maksim. 11. The patient is at high risk given age comorbidities and current presentation. 12. Reviewed the plan of care with the patient and her son and [id number]. No questions or further needs at end of evaluation. Job ID: [id number] MTDD
[2018-10-15] MEDS ORDERED: Benzonatate 100 MG CAP PO PRN (20:10)
[2018-10-15] MEDS: Sotalol HCl 80 MG TAB PO SCH (20:38)
[2018-10-15] MEDS: Doxycycline 100 MG CAP PO SCH (20:39)
[2018-10-15] MEDS: Pravastatin Sodium 40 MG TAB PO SCH (20:39)
[2018-10-15] MEDS: Diabetic Tussin 200 MG/10 ML UDCUP PO PRN (20:39)
[2018-10-15 21:50] VITALS: BMI 27.8
[2018-10-16] MEDS: Levothyroxine Sodium 50 MCG TAB PO SCH (05:46)
[2018-10-16 07:00] LABS: #Eosinphils 0.2 thou/uL (0.0-0.7); #Neutrophils 4.3 thou/uL (1.40-6.50); %Basophils 0.6 % (0.0-1.0); %Lymphocytes 26.1 % (21.0-51.0); %Monocytes 13.5 % (0.0-10.0); %Neutrophils 56.7 % (42.0-75.0); Hemoglobin 11.4 g/dL (12.0-16.0); Mean Corpuscular HGB CONC 33.2 g/dL (32.0-36.0); Mean Corpuscular Hemoglobin 31.2 pg (27.0-31.0); Mean Corpuscular Volume 93.8 fL (78.0-98.0); Mean Platelet Volume 7.1 fL (7.4-10.4); Platelet Count 215 thou/uL (130-400); RBC Distribution Width 11.2 % (11.5-14.5); Red Blood Cell (RBC) Count 3.65 mill/uL (4.20-5.40); White Blood Cell (WBC) Count 7.6 thou/uL (4.8-10.8)
[2018-10-16 07:20] LABS: Anion Gap 10 mmol/L (10-20); BUN (Urea Nitrogen) 11 mg/dL (9.8-20.1); Calc. Creatinine Clearance 70 mL/min (70-130); Calcium 8.6 mg/dL (7.8-10.44); Carbon Dioxide 24 mmol/L (23-31); Chloride 108 mmol/L (98-107); Estimated GFR-MDRD 80; Glucose 110 mg/dL (83-110); Potassium 3.7 mmol/L (3.5-5.1); Sodium 138 mmol/L (136-145)
--- NOTE | 2018-10-16 07:49 | PDOC.PN ---
- Subjective Encounter Start Date: 10/16/18 Encounter Start Time: 13:20 Subjective: Patient feeling much better. Cough improving a bit. Energy level -: better. No pain. - Objective Resuscitation Status - Order Detail: 10/15/18 18:12 Resuscitation Status Routine Resuscitation Status: FULL: Full Resuscitation MAR Reviewed: Yes Vital Signs & Weight: Vital Signs (12 hours) Temp Pulse Resp BP BP Pulse Ox 10/16/18 07:31 98.6 F 76 19 118/57 L 92 L 10/16/18 03:53 99.0 F 73 18 110/57 L 92 L 10/16/18 01:41 99.5 F 78 18 129/65 94 L 10/15/18 20:38 76 141/70 H 10/15/18 20:00 99.1 F 76 18 100 Weight Weight 156 lb 12.8 oz I&O: 10/15/18 10/16/18 10/17/18 06:59 06:59 06:59 Intake Total 320 Output Total 360 Balance -40 Result Diagrams: 10/16/18 06:32 10/16/18 06:32 Phys Exam - Physical Examination Constitutional: NAD HEENT: moist MMs Respiratory: no wheezing, no rales, no rhonchi Cardiovascular: RRR, no significant murmur Gastrointestinal: soft, positive bowel sounds Neurological: non-focal, moves all 4 limbs Psychiatric: normal affect, A&O x 3 Dx/Plan (1) Community acquired bacterial pneumonia Code(s): J15.9 - UNSPECIFIED BACTERIAL PNEUMONIA Status: Acute Comment: Right middle lobe infiltrate (2) Aortic dissection Code(s): I71.00 - DISSECTION OF UNSPECIFIED SITE OF AORTA Status: Chronic Comment: treated medically (3) Hypertension Code(s): I10 - ESSENTIAL (PRIMARY) HYPERTENSION Status: Chronic Qualifiers: Hypertension type: essential hypertension Qualified Code(s): I10 - Essential (primary) hypertension (4) Hypothyroidism Code(s): E03.9 - HYPOTHYROIDISM, UNSPECIFIED Status: Chronic (5) Dyslipidemia Code(s): E78.5 - HYPERLIPIDEMIA, UNSPECIFIED Status: Chronic - Plan cont current plan of care, continue antibiotics, PT/OT, DVT proph w/SCDs improving, will treat one more day with IV antibiotics, possibly home -: tomorrow * . - Discharge Day Encounter end time: 13:30
[2018-10-16] MEDS: Amlodipine 5 MG TAB PO SCH (08:39)
[2018-10-16] MEDS: Aspirin 81 mg Enteric Coated Tablet PO SCH (08:39)
[2018-10-16] MEDS: Doxycycline 100 MG CAP PO SCH ×2 (08:40→20:00)
[2018-10-16] MEDS: Furosemide 20 MG TAB PO SCH (08:40)
[2018-10-16] MEDS: Sotalol HCl 80 MG TAB PO SCH ×2 (08:42→20:01)
[2018-10-16] MEDS ORDERED: cefTRIAXone\\ROCEPHIN 1 GM in Sodium Chloride 0.9% 100 ML IVPB SCH (17:00)
[2018-10-16] MEDS: Pravastatin Sodium 40 MG TAB PO SCH (20:01)
[2018-10-16] MEDS: Diabetic Tussin 200 MG/10 ML UDCUP PO PRN (22:55)
[2018-10-17] MEDS: Levothyroxine Sodium 50 MCG TAB PO SCH (05:02)
[2018-10-17] MEDS: Diabetic Tussin 200 MG/10 ML UDCUP PO PRN (05:04)
[2018-10-17 07:00] VITALS: BP 136/62; TEMP 98.6
--- NOTE | 2018-10-17 08:04 | PDOC.PN ---
- Subjective Encounter Start Date: 10/17/18 Encounter Start Time: 09:00 Subjective: Patient reports improved cough, productive of moderate sputum. No SOB. -: Ambulating well. Taking oral fluids well. Not really very hungry for food. -: No fever. Eager to go home. - Objective Resuscitation Status - Order Detail: 10/15/18 18:12 Resuscitation Status Routine Resuscitation Status: FULL: Full Resuscitation MAR Reviewed: Yes Vital Signs & Weight: Vital Signs (12 hours) Temp Pulse Resp BP Pulse Ox 10/17/18 07:00 98.6 F 71 17 136/62 93 L 10/17/18 03:40 99.2 F 93 18 137/63 93 L Weight Weight 156 lb 12.8 oz I&O: 10/16/18 10/17/18 10/18/18 06:59 06:59 06:59 Intake Total 320 1410 Output Total 360 1700 Balance -40 -290 Result Diagrams: 10/16/18 06:32 10/16/18 06:32 Phys Exam - Physical Examination Constitutional: NAD HEENT: moist MMs Respiratory: no wheezing, no rales, no rhonchi, clear to auscultation bilateral Cardiovascular: RRR, no significant murmur Gastrointestinal: soft, non-tender, positive bowel sounds Neurological: non-focal, moves all 4 limbs Psychiatric: normal affect, A&O x 3 Dx/Plan (1) Community acquired bacterial pneumonia Code(s): J15.9 - UNSPECIFIED BACTERIAL PNEUMONIA Status: Acute Comment: Right middle lobe infiltrate (2) Aortic dissection Code(s): I71.00 - DISSECTION OF UNSPECIFIED SITE OF AORTA Status: Chronic Comment: treated medically (3) Hypertension Code(s): I10 - ESSENTIAL (PRIMARY) HYPERTENSION Status: Chronic Qualifiers: Hypertension type: essential hypertension Qualified Code(s): I10 - Essential (primary) hypertension (4) Hypothyroidism Code(s): E03.9 - HYPOTHYROIDISM, UNSPECIFIED Status: Chronic (5) Dyslipidemia Code(s): E78.5 - HYPERLIPIDEMIA, UNSPECIFIED Status: Chronic - Plan cont current plan of care, continue antibiotics switch to oral antibiotics and d/c home today * . - Discharge Day Encounter end time: 09:20
[2018-10-17] MEDS: Amlodipine 5 MG TAB PO SCH (08:39)
[2018-10-17] MEDS: Aspirin 81 mg Enteric Coated Tablet PO SCH (08:39)
[2018-10-17] MEDS: Doxycycline 100 MG CAP PO SCH (08:39)
[2018-10-17] MEDS: Sotalol HCl 80 MG TAB PO SCH (08:39)
[2018-10-17] MEDS: Furosemide 20 MG TAB PO SCH (08:39)
--- NOTE | 2018-10-18 05:32 | DIS ---
DATE OF ADMISSION: 10/15/2018 DATE OF DISCHARGE: 10/17/2018 PRIMARY CARE PHYSICIAN: Dr. Llanos. REASON FOR ADMISSION: Pneumonia. DIAGNOSES AT DISCHARGE: 1. Community-acquired bacterial pneumonia. 2. Chronic aortic dissection. 3. Hypertension. 4. Hypothyroidism. 5. Dyslipidemia. PROCEDURES: None. CONSULTATIONS: None. SUMMARY OF HOSPITAL COURSE: This is an 83-year-old female, who presented with 3-week history of cough, not improving. She was seen in the emergency room. Chest x-ray revealed a right middle lobe pneumonia. She was started on IV antibiotics and admitted to the hospital. The patient improved over the next 2 days. She had improvement in her cough. Cough is a little more productive and she had no shortness of breath. Her weakness and fatigue improved and she was ambulating well. Eager to go home and so she is being discharged home. DISCHARGE MANAGEMENT: Discharged home. FOLLOWUP: Follow up with Dr. Llanos in 1 to 2 weeks. ACTIVITY: As tolerated. DIET: Healthy heart diet. MEDICATIONS: 1. Cefdinir 300 mg twice a day for another 5 days. 2. Doxycycline 100 mg twice a day for another 5 days. 3. Tessalon 100 mg three times a day as needed for cough, 20 capsules dispensed. 4. Continue amlodipine 5 mg daily. 5. Aspirin 81 mg daily. 6. Vitamin D3, 5000 units daily. 7. Furosemide 20 mg twice a day. 8. Levothyroxine 50 mcg daily. 9. Minoxidil, apply to scalp at night. 10. Pravastatin 40 mg at night. 11. Sotalol 80 mg twice a day. Job ID: [id number]
== END 2018-10-17 11:00 | disposition home or self-care (01) | DRG 193 ==
LOC: ERS 14:09 → 2NO 16:05
PROVIDERS: ADMIT Family Medicine; ATTEND Family Medicine
DX: J18.9 Pneumonia, unspecified organism (principal); I71.00 Dissection of unspecified site of aorta; I10 Essential (primary) hypertension; E78.5 Hyperlipidemia, unspecified; E03.9 Hypothyroidism, unspecified; Y95 Nosocomial condition; Z87.440 Personal history of urinary (tract) infections; Z88.1 Allergy status to other antibiotic agents; Z79.899 Other long term (current) drug therapy; Z79.82 Long term (current) use of aspirin; Z90.710 Acquired absence of both cervix and uterus
CPT/HCPCS: 36415; 71046; 80048; 80053; 83605; 84484; 85025; 87040; 87804; 93005; 96365; J0696; J3490

== ENCOUNTER 2018-10-26 13:50 | Outpatient (CLI) | payer MEDICARE, OTHER ==
[~2018-10-26 13:50] MED LIST changes: -B & O 30 MG SUPP ONE; -Fentanyl 100 MCG/2 ML VIAL ONE; -Glycopyrrolate 0.2 MG/ML 5 ML SYRINGE ONE; +Iopamidol 370 76% 100 ML VIAL ONE; -Levofloxacin 500 mg/D5W 100 ml Premix Bag ONE; -Lidocaine 1% PF 5 ML VIAL ONE; -MEROPENEM 1 GM/50 ML 1 GM in Premix Bag 1 BAG IVPB SCH; -Ondansetron PF 4 MG/2 ML Vial ONE; -PROPOFOL 200 MG/20 ML VIAL ONE; -SUGAMMADEX SODIUM 200 MG/2 ML VIAL ONE
--- NOTE | 2018-10-26 15:45 | CT ---
CTA of the chest and abdomen utilizing an aortic dissection protocol and 3-D reformatted imaging INDICATION: History of thoracic aortic aneurysm without rupture COMPARISON: None FINDINGS: Aorta: There is been some mild interval enlargement of the ascending aortic aneurysm previously measu ring in its greatest mediolateral dimensions 4.1 cm now measuring up to 4.3 cm on image 27 of coronal. The diffuse aneurysmal dilatation involving the distal thoracic aortic arch with a small foc al dissection previously measured 5.1 cm now measures 5.4 cm on image 45 of the coronal series. The descending thoracic aortic aneurysm is stable measuring 3.4 cm. The ectasia of the suprarenal abdomin al aorta is stable measuring 2.6 cm. The abdominal aorta at the level of renal arteries measures 2.1 cm. The visualized infrarenal abdominal aorta measures 1.9 cm. Central pulmonary artery: No central pulmonary embolus demonstrated. Additional thorax findings: There are scattered areas of consolidation within the right middle lobe, right lower lobe and lingula suspicious for multifocal pneumonia. Additional abdominal findings: There is a small hiatal hernia. There are bilateral renal cysts. Osseous structures: There is scattered degenerative and osteoarthritic change present. There is stabl e superior endplate compression abnormality of T11. There is diffuse osteopenia. IMPRESSION: 1. Worsening aneurysmal dilatation of the ascending aorta now measuring 4.3 cm where previously measu red 4.1 cm. 2. Worsening aneurysmal dilatation of the distal thoracic aortic arch now measuring 4.4 cm where prev iously measured 5.1 cm. 3. Stable descending thoracic aortic aneurysm measuring 3.4 cm. 4. Multifocal pneumonia
== END 2018-10-26 13:51 | disposition home or self-care (01) ==
LOC: BICCT 13:50
PROVIDERS: ATTEND Thoracic Surgery (Cardiothoracic Vascular Surgery)
DX: I71.2 Thoracic aortic aneurysm, without rupture (principal); J18.1 Lobar pneumonia, unspecified organism
CPT/HCPCS: 71275; Q9967

== ENCOUNTER 2018-11-29 10:58 | Outpatient (CLI) | payer MEDICARE, OTHER ==
--- NOTE | 2018-11-29 12:19 | RAD ---
XR Chest Pa Lat STANDARD History: Unspecified bacterial pneumonia Comparison: Radiograph October 15, 2018 Findings: There is improved right middle lobe airspace infiltrate. The thoracic aorta is aneurysmal. No pneumothorax. No large effusion. Impression: 1. Interval improvement right middle lobe pneumonia. 2. Nodule seen on the prior CT is not well-defined on this exam of the lingula. CT follow-up recommen ded. 3. Aneurysmal thoracic aorta.
== END 2018-11-29 10:59 | disposition home or self-care (01) ==
LOC: BICRAD 10:58
PROVIDERS: ATTEND Internal Medicine
DX: J18.1 Lobar pneumonia, unspecified organism (principal); I71.2 Thoracic aortic aneurysm, without rupture
CPT/HCPCS: 71046

== ENCOUNTER 2019-11-02 10:35 | Outpatient (CLI) | payer MEDICARE ==
--- NOTE | 2019-11-02 12:16 | RAD ---
LUMBAR SPINE 2 VIEWS: Date: 11/02/2019 HISTORY: Chronic back pain. FINDINGS/IMPRESSION: There are degenerative changes of mild dextroscoliosis of the lumbar spine. There is mild compression of the T11 vertebral body. There is minimal retrolisthesis of L3 over L4. There are vascular calcifi cations. POS: [facility]
== END 2019-11-02 10:36 | disposition home or self-care (01) ==
LOC: BICRAD 10:35
PROVIDERS: ATTEND Family Medicine
DX: G89.29 Other chronic pain (principal); M47.816 Spondylosis without myelopathy or radiculopathy, lumbar region; M48.061 Spinal stenosis, lumbar region without neurogenic claudication; M43.16 Spondylolisthesis, lumbar region; M41.86 Other forms of scoliosis, lumbar region; G95.20 Unspecified cord compression; I70.90 Unspecified atherosclerosis
CPT/HCPCS: 72100

== ENCOUNTER 2019-12-12 13:32 | Outpatient (CLI) | payer MEDICARE ==
[~2019-12-12 13:32] MED LIST changes: -Iopamidol 370 76% 100 ML VIAL ONE; +Iopamidol-370 76% 500 ML 1 ML ONE
--- NOTE | 2019-12-12 15:15 | CT ---
CTA CHEST WITH IV CONTRAST AND 3D POST PROCESSING: HISTORY: Thoracic aortic aneurysm without rupture. COMPARISON: 10/26/2018. FINDINGS: The ascending aortic aneurysm is stable measuring 4.3 cm (image 26 of coronal). The diffuse aneurysm al dilatation involving the distant thoracic aortic arch with a small focal dissection is also stable measuring 5.4 cm (image 39 of coronal). The descending thoracic aortic and aorta is stable measurin g 3.4 cm (image 51 axial). The ectatic abdominal aorta is also stable measuring 2.6 cm in the suprarenal level, 2.1 cm at the le elza of the renal artery, and 2 cm infrarenally. No pleural or pericardial effusions are seen. No me diastinal, hilar, or axillary lymphadenopathy is identified. There is a stable 4 mm parenchymal nodu le in the anterior aspect of the right lower lobe. Patchy areas of consolidation noted on the previo us exam have resolved in the interim. Upper abdominal tomograms demonstrate fatty infiltration of the liver and bilateral renal cysts and a small hiatal hernia. The superior end plate compression abnormality of T11 is stable. IMPRESSION: Stable thoracic aortic aneurysm. POS: [facility]
== END 2019-12-12 13:33 | disposition home or self-care (01) ==
LOC: BICCT 13:32
PROVIDERS: ATTEND Thoracic Surgery (Cardiothoracic Vascular Surgery)
DX: I71.2 Thoracic aortic aneurysm, without rupture (principal)
CPT/HCPCS: 71260; 82565; Q9967

== ENCOUNTER 2020-10-07 15:53 | Outpatient (CLI) | payer MEDICARE | END 2020-10-07 15:54 | disposition home or self-care (01) | LOC: BICULT 15:53 | PROVIDERS: ATTEND Family Medicine | DX: I65.23 Occlusion and stenosis of bilateral carotid arteries (principal) | CPT/HCPCS: 93880 ==

== ENCOUNTER 2020-10-14 15:08 | Outpatient (CLI) | payer MEDICARE | END 2020-10-14 15:09 | disposition home or self-care (01) | LOC: BICRAD 15:08 | PROVIDERS: ATTEND Family Medicine | DX: M54.2 Cervicalgia (principal); M54.5 Low back pain; M51.36 Other intervertebral disc degeneration, lumbar region; M47.816 Spondylosis without myelopathy or radiculopathy, lumbar region; M47.812 Spondylosis without myelopathy or radiculopathy, cervical region; M47.814 Spondylosis without myelopathy or radiculopathy, thoracic region | CPT/HCPCS: 72040; 72072; 72100 ==

== ENCOUNTER 2021-01-12 13:57 | Outpatient (CLI) | payer MEDICARE | END 2021-01-12 13:58 | disposition home or self-care (01) | LOC: BICMRI 13:57 | PROVIDERS: ATTEND Family Medicine | DX: M54.5 Low back pain (principal); M51.26 Other intervertebral disc displacement, lumbar region; M51.27 Other intervertebral disc displacement, lumbosacral region | CPT/HCPCS: 72148 ==

== ENCOUNTER 2021-02-04 15:57 | Outpatient (CLI) | payer MEDICARE ==
[2021-02-04 17:37] LABS: Anion Gap 16 mmol/L (10-20); BUN (Urea Nitrogen) 25 mg/dL (9.8-20.1); Calc. Creatinine Clearance 0 mL/min (70-130); Calcium 10.4 mg/dL (7.8-10.44); Carbon Dioxide 23 mmol/L (23-31); Chloride 103 mmol/L (98-107); Glucose 118 mg/dL (83-110); Potassium 3.6 mmol/L (3.5-5.1); Sodium 138 mmol/L (136-145)
[2021-02-04 18:06] LABS: Mean Corpuscular HGB CONC 32.3 g/dL (32.0-36.0); Mean Corpuscular Hemoglobin 29.6 pg (27.0-33.0); Mean Corpuscular Volume 91.5 fl (81.6-98.3); Mean Platelet Volume 10.2 fl (7.4-10.4); Platelet Count 231 10x3/uL (150-450); RBC Distribution Width 12.9 % (11.5-14.5); Red Blood Cell (RBC) Count 4.73 10x6/uL (3.90-5.03); White Blood Cell (WBC) Count 8.5 10x3/uL (3.5-10.5)
[2021-02-05 12:08] LABS: SARS-CoV-2 PCR by NAA Not Detected (NotDetected)
== END 2021-02-04 15:58 | disposition home or self-care (01) ==
LOC: LABBT 15:57
PROVIDERS: ATTEND Specialist
DX: Z01.812 Encounter for preprocedural laboratory examination (principal); Z20.822 Contact with and (suspected) exposure to COVID-19
CPT/HCPCS: 80048; 85027; U0003; U0005

== ENCOUNTER 2021-02-09 16:00 | Outpatient (CLI) | payer MEDICARE ==
[2021-02-10 12:40] LABS: SARS-CoV-2 PCR by NAA Not Detected (NotDetected)
== END 2021-02-09 16:01 | disposition home or self-care (01) ==
LOC: LABBT 16:00
PROVIDERS: ATTEND Specialist
DX: Z01.812 Encounter for preprocedural laboratory examination (principal); S22.080A Wedge compression fracture of T11-T12 vertebra, initial encounter for closed fracture; Z20.822 Contact with and (suspected) exposure to COVID-19
CPT/HCPCS: U0003; U0005

== ENCOUNTER 2021-02-11 06:22 | Day surgery (SDC) | payer MEDICARE ==
[2021-02-10 10:03] VITALS: BMI 25.6
[2021-02-11] MEDS ORDERED: Fentanyl 100 MCG/2 ML VIAL ONE (06:42)
[2021-02-11] MEDS ORDERED: Bupivacaine PF 0.5% 30 ML VIAL ONE (06:45)
[2021-02-11] MEDS ORDERED: Iopamidol 0 ML ONE (06:45)
[2021-02-11] MEDS ORDERED: Lidocaine 1% w/Epinephrine 1:100K 30 ML VIAL ONE (06:45)
[2021-02-11] MEDS ORDERED: CEFAZOLIN 1 GM VIAL ONE (08:07)
[2021-02-11] MEDS ORDERED: Sodium Chloride 0.9% 100 ML ONE (08:08)
== END 2021-02-11 10:00 | disposition home or self-care (01) ==
LOC: SDC 06:22
PROVIDERS: ATTEND Specialist
PROC: 0PS43ZZ Reposition Thoracic Vertebra, Percutaneous Approach (ICD-10-PCS; principal; 2021-02-11)
PROC: 0PU43JZ Supplement Thoracic Vertebra with Synthetic Substitute, Percutaneous Approach (ICD-10-PCS; 2021-02-11)
PROC: 0PB43ZX Excision of Thoracic Vertebra, Percutaneous Approach, Diagnostic (ICD-10-PCS; 2021-02-11)
DX: M80.08XA Age-related osteoporosis with current pathological fracture, vertebra(e), initial encounter for fracture (principal); S22.080A Wedge compression fracture of T11-T12 vertebra, initial encounter for closed fracture; E78.5 Hyperlipidemia, unspecified; I10 Essential (primary) hypertension; Z87.891 Personal history of nicotine dependence; Z79.82 Long term (current) use of aspirin; Z79.899 Other long term (current) drug therapy; Z88.1 Allergy status to other antibiotic agents; Z88.2 Allergy status to sulfonamides
CPT/HCPCS: 72070; 76000; 88307; 88311; 88342; J0690; J3010; J3490; Q9967; S0020

== ENCOUNTER 2022-09-06 13:21 | Emergency (ER) | payer MEDICARE ==
[2022-09-06] MEDS ORDERED: Morphine 4 MG/ML VIAL ONE (14:02)
== END 2022-09-06 15:26 | disposition home or self-care (01) ==
LOC: ERS 13:21
DX: M25.511 Pain in right shoulder (principal); I10 Essential (primary) hypertension; E78.5 Hyperlipidemia, unspecified; X50.0XXA Overexertion from strenuous movement or load, initial encounter
CPT/HCPCS: 93005; 96372; J2270

== ENCOUNTER 2023-04-05 12:22 | Outpatient (CLI) | payer MEDICARE | END 2023-04-05 12:23 | disposition home or self-care (01) | LOC: BICCT 12:22 | PROVIDERS: ATTEND Thoracic Surgery (Cardiothoracic Vascular Surgery) | DX: I71.20 Thoracic aortic aneurysm, without rupture, unspecified (principal) | CPT/HCPCS: 71250 ==

== ENCOUNTER 2023-10-06 10:46 | Outpatient (CLI) | payer MEDICARE | END 2023-10-06 10:47 | disposition home or self-care (01) | LOC: BICULT 10:46 | PROVIDERS: ATTEND Family Medicine | DX: R19.00 Intra-abdominal and pelvic swelling, mass and lump, unspecified site (principal); R63.4 Abnormal weight loss; N28.1 Cyst of kidney, acquired | CPT/HCPCS: 76700; 76856 ==

== ENCOUNTER 2023-10-20 10:43 | Outpatient (CLI) | payer MEDICARE | END 2023-10-20 10:44 | disposition home or self-care (01) | LOC: BICCT 10:43 | PROVIDERS: ATTEND Family Medicine | DX: N28.89 Other specified disorders of kidney and ureter (principal); N28.1 Cyst of kidney, acquired | CPT/HCPCS: 74170; 82565 ==

== ENCOUNTER 2024-06-05 12:30 | Outpatient (CLI) | payer MEDICARE, OTHER | END 2024-06-05 12:31 | disposition home or self-care (01) | LOC: BICCT 12:30 | PROVIDERS: ATTEND Thoracic Surgery (Cardiothoracic Vascular Surgery) | DX: I71.20 Thoracic aortic aneurysm, without rupture, unspecified (principal); I25.10 Atherosclerotic heart disease of native coronary artery without angina pectoris; R91.1 Solitary pulmonary nodule | CPT/HCPCS: 71250 ==